=== PATIENT | male | born 1975 | race Caucasian/White ===

== ENCOUNTER 2016-10-22 08:25 | Emergency (ER) | payer SELFPAY ==
[~2016-10-22] VITALS: Ht 172.7 cm; Wt 100.0 kg
[~2016-10-22 08:25] MED LIST: IBUP-238 PO; LORT5TAB PO; PENI500T PO; Z.0.NO CURRENT MEDS
[2016-10-22 08:27] VITALS: BP 132/83; PULSE 78; RESP 24; TEMP 97.4; O2SAT 98
--- NOTE | 2016-10-22 08:44 | PD ---
HPI Chief Complaint: Pain: Acute or Chronic Time Seen by Provider: 08:44 Travel History International Travel<30 days: No Contact w/Intl Traveler<30days: No Traveled to known affect area: No History of Present Illness HPI 41-year-old male presents to the emergency department for evaluation of right ankle swelling and pain for 1 day. Patient denies any injury or trauma to his ankle. States that yesterday he worked and when he came home he had pain in his ankle. States that the pain and swelling is worsened overnight. States that he works at the [employer] and does a lot of walking but denies any movement or injury to his ankle. He admits that he had a prior injury to this ankle, states that he's had torn ligaments in the past. States he has taken Tylenol with minimal improvement of symptoms. States that the pain is aggravated with movement, palpation and weightbearing. Denies any alleviating factors. No other complaints. PFSH Past Medical History Medical History: Denies Significant Hx Diminished Hearing: No Past Surgical History Abdominal Surgery: Yes (SPLEENECTOMY) Other Surgery: Yes (SPLEENECTOMY) Social History Alcohol Use: Yes (SOCIALLY) Tobacco Use: Yes (LESS THAN 1/2 PPD) Substance Use: No Allergies-Medications (Allergen,Severity, Reaction): Coded Allergies: No Known Allergies (Verified , 10/22/16) Reported Meds & Prescriptions Reported Meds & Active Scripts Active No Active Prescriptions or Reported Medications Review of Systems Except as stated in HPI: all other systems reviewed are Neg Physical Exam Narrative GENERAL: Well-nourished and well-developed pleasant patient in no acute distress. SKIN: Warm and dry. HEAD: Normocephalic and atraumatic. EYES: No injection, drainage, or hyphema noted. PERRLA. EOMI. ENT: No nasal drainage noted. Oropharynx is clear. NECK: Supple and the trachea is midline. CARDIOVASCULAR: Regular rate and rhythm. RESPIRATORY: Breath sounds are equal bilaterally with no accessory muscle use, wheezing, rhonchi, or crackles. EXTREMITY: The right ankle is swollen and tender over the lateral and medial aspects but the skin is intact and there is no ligamentous instability. No erythema or warmth. There is no deformity. The foot and toes are warm and well- perfused. Sensation to pain and light touch is intact. NEUROLOGICAL: Awake, alert, and oriented. Normal speech and gait. Cranial nerves are grossly intact. Data Data Last Documented VS Vital Signs Date Time Temp Pulse Resp B/P Pulse Ox O2 Delivery O2 Flow Rate FiO2 10/22/16 08:27 97.4 78 24 132/83 98 Room Air Orders Ankle, Complete ([id number]) (10/22/16 08:43) Ice/Cold Pack (10/22/16 08:43) Acetamin-Hydrocod 325-5 Mg ([place] 5-325 (10/22/16 08:45) Splint Or Brace Apply/Monitor (10/22/16 09:35) Crutches (10/22/16 09:35) Mandatory Outpatient Referral (10/22/16 09:36) MDM Medical Decision Making Medical Screen Exam Complete: Yes Emergency Medical Condition: Yes Differential Diagnosis Ankle sprain versus contusion versus gout versus arthritis Narrative Course 41-year-old male presents to the emergency department for evaluation of right ankle pain and swelling. Patient is afebrile, vital signs are stable. Patient' s right lower extremity is neurovascularly intact. The right ankle is swollen and tender to palpation. He is denying any injury to the ankle but admits that he said prior ligamentous injuries to the same ankle. There is no redness or warmth to suggest any sort of infection. We'll do an x-ray to rule out any bony abnormality. Patient is administered Lortab 5325 milligrams here in the emergency department. X-ray imaging shows soft tissue swelling along the lateral malleolus with a questionable tiny cortical avulsion injury along the lateral talus. Recommended correlation with point tenderness. Also primary degenerative changes noted. The patient does have tenderness overlying this questionable avulsion fracture. Therefore the patient will be placed in a splint and given crutches for ambulation. A mandatory outpatient referral is been ordered to follow-up with orthopedics. He'll be given a prescription for pain medicine and discussed supportive care. Patient verbalizes understanding and agreement with treatment plan. Diagnosis Primary Impression: Avulsion fracture of right talus Qualified Code: S92.151A - Avulsion fracture of right talus, closed, initial encounter Referrals: Orthopedist Patient Instructions: Ankle Fracture (ED), General Instructions Departure Forms: Tests/Procedures, Work Release Special Instructions: Patient is unable to bear weight on his right foot until cleared by orthopedist. Additional Instructions: Splint. Crutches for ambulation. Elevate right foot. Apply ice for 20 minutes on, 20 minutes off. Take medications as prescribed with food and a full glass of water. Do not take Lortab with alcohol or while driving. Follow-up with an orthopedist. Return to the ED for any acute worsening of symptoms. Med/Other Pt SpecificInfo: Prescription(s) given Scripts Ibuprofen 800 Mg Khn152 Mg PO Q8H PRN (PAIN SCALE 1 TO 10) 10 Days Ref 0 Prov:Arian Moulton MD 10/22/16 Hydrocodone-Acetaminophen (Lortab)5-325 Mg Tab1 Tab PO Q6H PRN (PAIN GREATER THAN 6) #15 TAB Ref 0 Prov:Arian Moulton MD 10/22/16 Disposition: 01 DISCHARGE HOME Condition: Stable Eula Pruitt Oct 22, 2016 08:44
[2016-10-22] MEDS ORDERED: ACETAMINOPHEN/HYDROcodone 325 MG/5 MG TAB PO ONE (08:45)
--- NOTE | 2016-10-22 09:11 | RADRPT ---
EXAM DATE/TIME: 10/22/2016 09:01 [facility] COMPARISON: No previous studies available for comparison. INDICATIONS : Pain and swelling. MEDICAL HISTORY : Prior torn ligaments of right ankle. SURGICAL HISTORY : None. ENCOUNTER: Initial ACUITY: 2 days PAIN SCORE: 10/10 LOCATION: Right ankle. FINDINGS: Three view exam was performed of the right ankle. There is soft tissue swelling around the lateral ma lleolus. On the AP view there appears to be a sliver of cortex suggestive of a avulsion injury along the lateral talus. The rest of the bony structures appear to be grossly intact. There is good alignme nt at the mortise joint. There are some degenerative changes noted. On the lateral view there appears to be an exostosis off the posterior talus. CONCLUSION: 1. Soft tissue swelling along the lateral malleolus with a questionable tiny cortical avulsion injury along the lateral talus. Recommend correlation with point tenderness. 2. Primary degenerative changes. Milton White MD on October 22, 2016 at 9:07 Board Certified Radiologist. This report was verified electronically.
[2016-10-22] MEDS ORDERED: IBUP800T23 PO (09:38)
[2016-10-22] MEDS ORDERED: HYDR-3533 PO (09:38)
== END 2016-10-22 10:42 | disposition home or self-care (01) ==
LOC: NEPB 08:25
DX: S92.151A Displaced avulsion fracture (chip fracture) of right talus, initial encounter for closed fracture (principal); Y93.01 Activity, walking, marching and hiking; X50.3XXA Overexertion from repetitive movements, initial encounter; Y93.9 Activity, unspecified; Y92.512 Supermarket, store or market as the place of occurrence of the external cause; Y99.8 Other external cause status
CPT/HCPCS: 29515; 73610; 99283; E0113